=== PATIENT | female | born 1965 | race Caucasian/White ===

== ENCOUNTER 2016-11-26 07:30 | Emergency (ER) | payer OTHER ==
[~2016-11-26] VITALS: Ht 167.6 cm; Wt 64.0 kg
[2016-11-26] MEDS ORDERED: DICLOFENAC SODI75 MG PO (07:41)
[2016-11-26] MEDS ORDERED: VITAMIN D3400 UNIT PO (07:42)
[2016-11-26] MEDS ORDERED: CALCIUM 600 +1 EAC1 PO (07:42)
[2016-11-26 08:27] LABS: BASOPHILS 0.6 % (0.0-2.0); EOSINOPHILS 1.3 % (0.0-3.0); HEMOGLOBIN 11.6 gm/dL (12.0-15.0); LYMPHOCYTES 19.6 % (24.0-44.0); MCH 31.8 pg (26.0-34.0); MCHC 34.2 g/dL (28.0-37.0); MCV 93.2 fL (80.0-100.0); MONOCYTES 6.6 % (1.0-8.0); PLATELET COUNT 245 thou/uL (150-400); POLYS 71.9 % (36.0-66.0); RBC 3.65 mil/uL (4.20-5.00); RDW 12.6 % (10.5-14.5); WBC 6.9 thou/uL (4.0-11.0)
[2016-11-26 08:36] LABS: MANUAL DIFF NO
[2016-11-26 08:37] LABS: POTASSIUM 3.9 mmol/L (3.5-5.1)
[2016-11-26 10:16] VITALS: BP 108/59
== END 2016-11-26 10:17 | disposition home or self-care (01) ==
LOC: ER 07:30
PROVIDERS: Emergency Medicine
DX: R19.09 Other intra-abdominal and pelvic swelling, mass and lump (principal); R59.1 Generalized enlarged lymph nodes; N83.292 Other ovarian cyst, left side; Z86.718 Personal history of other venous thrombosis and embolism; Z90.710 Acquired absence of both cervix and uterus; Z88.8 Allergy status to other drugs, medicaments and biological substances; F10.99 Alcohol use, unspecified with unspecified alcohol-induced disorder